=== PATIENT | male | born 1990 | race American Indian/Alaskan Native ===

== ENCOUNTER 2018-11-24 04:01 | Emergency (ER) | payer OTHER ==
[2018-11-24 04:10] VITALS: BP 116/87
[2018-11-24] MEDS ORDERED: XYLOCAINE 1% MPF 5 mL INFILTRATI ONE (08:22)
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
--- NOTE | 2018-11-24 09:47 | XRay Report ---
RIGHT HAND, 3 views: History: Glass, foreign body, laceration to right fifth digit. The bony architecture is intact. Bony alignment is normal. No soft tissue abnormalities are seen. The joint spaces appear preserved. IMPRESSION: Unremarkable right hand.
[2018-11-24] MEDS ORDERED: TRIPLE ANTIBIOTIC TP ONE ×2 (09:57→10:00)
== END 2018-11-24 10:08 | disposition home or self-care (01) ==
LOC: ED 04:01
DX: S61.216A Laceration without foreign body of right little finger without damage to nail, initial encounter (principal); J45.909 Unspecified asthma, uncomplicated; F17.200 Nicotine dependence, unspecified, uncomplicated; Z79.899 Other long term (current) drug therapy; Z91.013 Allergy to seafood; W25.XXXA Contact with sharp glass, initial encounter; Y93.89 Activity, other specified; Y92.89 Other specified places as the place of occurrence of the external cause; Y99.8 Other external cause status
CPT/HCPCS: 99283; A6250

== ENCOUNTER 2018-12-01 14:26 | Emergency (ER) | payer SELFPAY ==
[2018-12-01 14:37] VITALS: BP 129/61
--- NOTE | 2018-12-01 14:55 | Emergency Department Report ---
Suture/Staple Removal - [facility] Chief Complaint: Laceration/Recheck/Suture Stated Complaint: STITCHES REMOVED Time Seen by Provider: 12/01/18 14:47 When Sutures or [place] Placed: 8-10 Days Ago Wound Location: right finger and hand ED Review of Systems ROS: Stated complaint: STITCHES REMOVED Other details as noted in HPI Constitutional: denies: chills, fever Eyes: denies: eye pain, eye discharge, vision change ENT: denies: ear pain, throat pain Respiratory: denies: cough, shortness of breath, wheezing Cardiovascular: denies: chest pain, palpitations Endocrine: no symptoms reported Gastrointestinal: denies: abdominal pain, nausea, diarrhea Genitourinary: denies: urgency, dysuria Musculoskeletal: denies: back pain, joint swelling, arthralgia Skin: denies: rash, lesions Neurological: denies: headache, weakness, paresthesias Psychiatric: denies: anxiety, depression Hematological/Lymphatic: denies: easy bleeding, easy bruising ED Past Medical Hx - Past Medical History Hx Asthma: Yes - Surgical History Additional Surgical History: jaw - Social History Smoking Status: Never Smoker Substance Use Type: None - Medications Home Medications: Home Medications Medication Instructions Recorded Confirmed Last Taken Type HYDROcodone/APAP 7.5-325 [[place] 1 each PO Q6HR PRN #30 tablet 02/13/14 Unknown Rx 7.5/325 mg] Sulfamethoxazole/Trimethoprim 1 each PO BID #10 tablet 11/24/18 Unknown Rx [Bactrim DS TAB] Suture Removal Exam - Exam General: Vital signs noted. No distress. Alert and acting appropriately. Wound: No Pathologic Erythema, No Tenderness, No Drainage, No Pus, No Wound Dehiscence Other Systems: All other systems reviewed and are unremarkable. ED Course Vital Signs 12/01/18 14:34 Temperature 97.8 F Pulse Rate 88 Respiratory 18 Rate Blood Pressure 129/61 O2 Sat by Pulse 98 Oximetry - Reevaluation(s) Reevaluation #1: 12/01/18 14:49 Patient is speaking in full sentences with no signs of distress noted. ED Recheck MDM - Medical Decision Making Total of 6 stitches has been removed. Patient tolerated well. No signs of dehiscence. no cellulites. Critical care attestation.: If time is entered above; I have spent that time in minutes in the direct care of this critically ill patient, excluding procedure time. ED Disposition Clinical Impression: Visit for suture removal Disposition: - TO HOME OR SELFCARE Is pt being admited?: No Does the pt Need Aspirin: No Condition: Stable Instructions: Suture Removal (ED) Referrals: PRIMARY CARE, [Referring] - 3-5 Days JORDANA CAMACHO MD [Staff Physician] - 3-5 Days [facility] [Outside] - 3-5 Days [facility] [Outside] - 3-5 Days Forms: Work/School Release Form(ED)
== END 2018-12-01 15:30 | disposition home or self-care (01) ==
LOC: ED 14:26
DX: S61.411D Laceration without foreign body of right hand, subsequent encounter (principal); J45.909 Unspecified asthma, uncomplicated; Z91.013 Allergy to seafood; W26.8XXD Contact with other sharp object(s), not elsewhere classified, subsequent encounter